=== PATIENT | male | born 1970 | race Two or more races ===

== ENCOUNTER 2017-04-22 04:42 | Emergency (ER) | payer SELFPAY ==
[~2017-04-22] VITALS: Ht 188 cm; Wt 93.4 kg
[2017-04-22 06:08] VITALS: BP 109/81
== END 2017-04-22 06:08 | disposition home or self-care (01) ==
LOC: ED 04:42
DX: S83.92XA Sprain of unspecified site of left knee, initial encounter (principal); E11.9 Type 2 diabetes mellitus without complications; W11.XXXA Fall on and from ladder, initial encounter; Y93.89 Activity, other specified; Y99.8 Other external cause status; Y92.89 Other specified places as the place of occurrence of the external cause
CPT/HCPCS: J1885; Q0092

== ENCOUNTER 2020-03-02 19:52 | Emergency (ER) | payer SELFPAY ==
[~2020-03-02] VITALS: Ht 180.3 cm; Wt 104.3 kg
[2020-03-02 20:00] VITALS: BP 145/81; Ht 180.3 cm; Wt 104.3 kg
== END 2020-03-02 22:00 | disposition home or self-care (01) ==
LOC: ED 19:52
DX: H60.91 Unspecified otitis externa, right ear (principal); E11.9 Type 2 diabetes mellitus without complications